=== PATIENT | female | born 1955 | race Caucasian/White ===

== ENCOUNTER 2022-02-22 05:19 | Day surgery (SDC) | payer MEDICARE ==
[2022-02-18 10:25] LABS: BASOPHILS % (AUTO) 0.2 % (0-1); EOSINOPHILS # (AUTO) 0.3 X10'3 (0-0.9); LYMPHOCYTES # (AUTO) 1.3 X10'3 (1.1-4.8); MEAN CORPUSCULAR HGB CONC 33.5 g/dL (33.0-36.5); MEAN CORPUSCULAR VOLUME 89.4 FL (78-98); MEAN PLATELET VOLUME 7.8 FL (7.4-10.4); MONOCYTES # (AUTO) 0.7 X10'3 (0-0.9); MONOCYTES % (AUTO) 7.8 % (2-12); NEUTROPHILS # (AUTO) 6.4 X10'3 (1.8-7.7); PRE OP HEMATOCRIT 38.3 % (35.0-45.0); PRE OP HEMOGLOBIN 12.9 g/dL (12.0-16.0); PRE OP PLATELET COUNT 299 X10'3 (140-440); RED BLOOD COUNT 4.29 X10'6 (4.20-5.60)
[2022-02-18 10:26] LABS: ALBUMIN 3.6 G/DL (3.4-5.0); ALBUMIN/GLOBULIN RATIO 0.9 (1.1-1.5); ALKALINE PHOSPHATASE 65 IU/L (46-116); BLOOD UREA NITROGEN 21 MG/DL (7-18); BUN/CREATININE RATIO 26.3 (6.6-38.0); CALCIUM 9.1 MG/DL (8.5-10.1); CHLORIDE 104 MMOL/L (99-107); PRE OP ALT 31 U/L (30-65); PRE OP ANION GAP 4 (8-16); PRE OP AST 14 U/L (10-37); PRE OP GLUCOSE 86 MG/DL (70-104); PRE OP POTASSIUM 4.6 MMOL/L (3.4-5.1); PRE OP SODIUM 139 MMOL/L (135-145); TOTAL CARBON DIOXIDE 30.7 MMOL/L (24-32); TOTAL PROTEIN 7.4 G/DL (6.4-8.2); eGFR 72 ML/MIN
[2022-02-18 11:06] LABS: PRE OP BILIRUB, TOTAL 0.2 MG/DL (0.0-1.0)
[~2022-02-22] VITALS: Ht 162.6 cm; Wt 93.5 kg
[2022-02-22] VITALS (7 sets, daily range): BP systolic 129–152; BP diastolic 78–87
[~2022-02-22 05:19] MED LIST: IBUP-1985 PO; LISI5TAB22 PO; MULT-1085 PO; ROSU10TA28 PO; ringers solution, lacted 1,000 ML IV SCH
[2022-02-22] MEDS ORDERED: ceFAZolin inj. 2,000 MG in dextrose 5%-water 100 ML IV ONE (05:30)
[2022-02-22] MEDS ORDERED: famotidine 20mg tablet PO ONE (05:30)
[2022-02-22] MEDS ORDERED: LIDOcaine 1% (10mg/ml) 2ml vial ONE (05:53)
[2022-02-22] MEDS ORDERED: ketorolac trometh. 30mg/ml inj. ONE (07:01)
[2022-02-22] MEDS ORDERED: BUPIVAcaine/PF 5 mg/ml 10ml ONE (07:02)
[2022-02-22] MEDS ORDERED: lidocaine 1%/epinephrine 1:100,000 inj. 50ml multi-dose vial ONE (07:02)
[2022-02-22] MEDS ORDERED: LIDOcaine 1% 30ml preserv. free vial ONE (07:02)
[2022-02-22] MEDS ORDERED: MIDAZolam 1 MG/ML 5ML VIAL ONE (07:20)
[2022-02-22] MEDS ORDERED: fentaNYL/PF 50MCG/1 ML 2ML syringe ONE (07:20)
[2022-02-22] MEDS ORDERED: BUPIVAcaine 0.5% inj/PF 30 ML ONE (07:21)
[2022-02-22] MEDS ORDERED: propofol inj 20 ML IV ONE (07:26)
[2022-02-22] MEDS ORDERED: LIDOcaine 2% (20mg/ml) 5ml vial ONE (07:35)
[2022-02-22] MEDS ORDERED: HYDROcodone/acetaminophen 10/325mg tab PO PRN (08:10)
--- NOTE | 2022-02-22 08:15 | NUR ---
Received from OR via [facility], accompanied by Anesthesiologist DR BARNHART and report given by Anesthesiolgist. PT PRESENTS WITH PIV 20G RIGHT HAND, KNEE DRESSING WITH NORIS WRAP CDI, VSS. Addendum: 02/22/22 at 0831 by Lashaun Aguilar RN, RN Amended: Links added. Addendum: 02/22/22 at 0831 by Lashaun Aguilar RN, RN LEFT KNEE DRESSING CDI.
--- NOTE | 2022-02-22 09:15 | NUR ---
ALL DISCHARGE CRITERIA HAS BEEN MET. VSS, PAIN AT A TOLERABLE LEVEL, VOIDING AND ABLE TO SAFELY AMBULATE AND TRANSFER SELF. IV TAKEN OUT WITHOUT ANY COMPLICATIONS. ALL DISCHARGE INSTRUCTIONS COVERED WITH PATIENT AND ALL QUESTIONS ANSWERED. PATIENT TAKEN OUT VIA WHEELCHAIR TO PERSONAL VEHICLE WHERE FAMILY/FRIEND DROVE PATIENT HOME. Addendum: 02/22/22 at 0281 by Lashaun Aguilar RN, RN Amended: Links added.
== END 2022-02-22 09:15 | disposition home or self-care (01) ==
LOC: PAS 05:19
PROVIDERS: ATTEND Orthopaedic Surgery
DX: S83.242A Other tear of medial meniscus, current injury, left knee, initial encounter (principal); M94.262 Chondromalacia, left knee; Z79.899 Other long term (current) drug therapy; Z98.890 Other specified postprocedural states; E78.5 Hyperlipidemia, unspecified; I10 Essential (primary) hypertension; X58.XXXA Exposure to other specified factors, initial encounter; Y93.89 Activity, other specified; Y92.89 Other specified places as the place of occurrence of the external cause; Y99.8 Other external cause status
CPT/HCPCS: 29881; 36415; 80053; 82948; 85025; J0690; J1885; J2250; J2704; J3010; J3490; J7060; J7120; S0020; Z7506; Z7508; Z7512; A4215; A4618; A6449; A7000

== ENCOUNTER 2024-03-08 17:14 | Emergency (ER) | payer MEDICARE ==
[~2024-03-08 17:14] MED LIST changes: -ROSU10TA28 PO; +ROSU10TA72 PO; -ringers solution, lacted 1,000 ML IV SCH
== END 2024-03-08 19:19 | disposition left against medical advice (07) ==
LOC: ER 17:15
DX: K08.89 Other specified disorders of teeth and supporting structures (principal); Z53.21 Procedure and treatment not carried out due to patient leaving prior to being seen by health care provider